=== PATIENT | female | born 1980 | race Caucasian/White ===

== ENCOUNTER → 2017-08-29 | Outpatient (CLI) | payer BC ==
[~2017-08-29] MED LIST: BCP TD; CEFTIN500 MG PO; CIPRO 500MG TA500 MG PO; PRENATAL1 TA2 PO; VITAMIN C500 MG PO; ZINC50 MG PO
== END ==
LOC: COL.RAD 09:39
DX: E04.1 Nontoxic single thyroid nodule (principal)

== ENCOUNTER → 2017-09-04 | Outpatient (CLI) | payer BC ==
[~2017-09-04] VITALS: Ht 165.1 cm; Wt 50.6 kg
[~2017-09-04] MED LIST changes: +B COMPLEX #11 TA1 PO; +CALCIUM-MAG PO; +MULTI VITAMINS1 TAB PO
[2017-09-04 10:58] VITALS: BP 119/76; PULSE 74
[2017-09-04 11:58] VITALS: BP 131/72; PULSE 79
== END ==
LOC: COL.RAD 10:27
DX: E04.1 Nontoxic single thyroid nodule (principal)